=== PATIENT | female | born 1990 | race Caucasian/White ===

== ENCOUNTER 2018-10-12 21:01 | Emergency (ER) | payer MEDICAID ==
[~2018-10-12] VITALS: Ht 170.2 cm; Wt 118.0 kg
[2018-10-12] MEDS ORDERED: PLEASE ENTER ALLERGIES MC SCH (22:00)
[2018-10-12] MEDS ORDERED: DIPHENHYDRAMINE 50 MG/ML, 1ML IVPush ONE (22:00)
[2018-10-12] MEDS ORDERED: METOCLOPRAMIDE 5 MG/ML, 2ML IVPush ONE (22:00)
[2018-10-12] MEDS ORDERED: SODIUM CHLORIDE 0.9% 1,000ML IVBOLUS ONE (22:00)
[2018-10-12] MEDS ORDERED: DIPHENHYDRAMINE 50 MG/ML, 1ML ONE (22:03)
[2018-10-12] MEDS ORDERED: METOCLOPRAMIDE 5 MG/ML, 2ML ONE (22:04)
--- NOTE | 2018-10-12 22:08 | NUR ---
PT REPORT FROM BERTIN VERONICA. THIS RN TO ASSUME CARE OF PT. RESTING COMFORTABLY ON GURNEY. MEDICATED PER NOV. AWAITING CT.
[2018-10-12 22:22] LABS: BASOPHILS # (AUTO) 0.05 x10^3/uL (0-0.1); BASOPHILS % (AUTO) 1 % (0-1); EOSINOPHILS # (AUTO) 0.13 x10^3/uL (0-0.4); EOSINOPHILS % (AUTO) 1 % (1-7); LYMPHOCYTES # (AUTO) 2.99 x10^3/uL (1-3.4); LYMPHOCYTES % (AUTO) 30 % (22-44); MD NO; MEAN CORPUSCULAR HEMOGLOBIN 29.7 pg (27.0-34.8); MEAN CORPUSCULAR HGB CONC 34.1 g/dL (32.4-35.8); MEAN CORPUSCULAR VOLUME 87.1 fL (80-100); MONOCYTES # (AUTO) 0.68 x10^3/uL (0.2-0.8); MONOCYTES % (AUTO) 7 % (2-9); NEUTROPHILS # (AUTO) 6.11 x10^3/uL (1.8-6.8); NEUTROPHILS % (AUTO) 61 % (42-75); PLATELET COUNT 332 x10^3/uL (130-400)
[2018-10-12 22:28] LABS: ALBUMIN 3.4 g/dL (3.4-5.0); ANION GAP 3 mmol/L (5-15); CALCIUM 8.4 mg/dL (8.5-10.1); CHLORIDE 106 mmol/L (98-107); CREATININE 1.16 mg/dL (0.55-1.02)
[2018-10-12 22:29] LABS: INTERNATIONAL NORMALIZED RATIO 0.95 (0.93-1.1); PROTHROMBIN TIME 10.1 Seconds (9.6-11.5)
--- NOTE | 2018-10-12 22:55 | NUR ---
PT AMB W/ STEADY GAIT TO RR. PT TOOK SUNGLASSES OFF AND SMILING AND CONVERSING W/ THIS RN AND FATHER. VSS. CALL LIGHT WITHIN REACH. AWAITING FURTHER RESULTS.
[2018-10-12] MEDS ORDERED: DEXAMETHASONE 4 MG/ML, 5ML ONE (23:24)
[2018-10-12] MEDS ORDERED: KETOROLAC 30 MG/1 ML ONE (23:24)
[2018-10-12] MEDS ORDERED: KETOROLAC 60 MG/2 ML IVPush ONE (23:30)
[2018-10-12] MEDS ORDERED: DEXAMETHASONE 4 MG/ML, 1ML PO ONE (23:30)
[2018-10-12 23:32] VITALS: BP 138/80
== END 2018-10-12 23:56 | disposition home or self-care (01) ==
LOC: ED 23:24
DX: G43.019 Migraine without aura, intractable, without status migrainosus (principal)
CPT/HCPCS: 36415; 70450; 80048; 82040; 85025; 85610; 85730; 96374; 96375; 99284; J1100; J1200; J1885; J2765; J7030

== ENCOUNTER → 2018-12-10 | Outpatient (CLI) | payer MEDICAID | END | disposition home or self-care (01) | LOC: CFH 13:55 | PROVIDERS: ATTEND Family Medicine | DX: R05 Cough (principal) | CPT/HCPCS: 71046 ==